=== PATIENT | female | born 1945 | race Caucasian/White ===

== ENCOUNTER 2024-12-20 07:07 | Inpatient (IN) ==
[2024-12-20] MEDS ORDERED: fentaNYL 100 MCG/2 ML VIAL ONE (07:16)
[2024-12-20] MEDS ORDERED: SUGAMMADEX SODIUM 200 MG/2 ML VIAL IV ONE ×2 (07:17→10:35)
[2024-12-20] MEDS ORDERED: KETAMINE 50 MG/ML ML ONE ×2 (07:17→11:29)
[2024-12-20] MEDS ORDERED: PROPOFOL 200 MG/20 ML VIAL IV ONE (07:17)
[2024-12-20] MEDS ORDERED: ROCURONIUM 10 MG/ML ML IV ONE ×2 (07:19→13:32)
[2024-12-20] MEDS ORDERED: GLYCOPYRROLATE 0.2 MG/ML VIAL IV ONE (07:19)
[2024-12-20] MEDS ORDERED: ONDANSETRON 4 MG/2 ML VIAL ONE (07:19)
[2024-12-20] MEDS ORDERED: DEXAMETHASONE 10 MG/ML VIAL ONE (07:19)
[2024-12-20] MEDS ORDERED: ROPIVACAINE HCL/PF 30 ML VIAL IJ ONE (07:24)
[2024-12-20] MEDS: VANCOMYCIN 1,500 MG in 0.9 % SODIUM CHLORIDE 500 ML IV SCH ×2 (08:05→20:30)
[2024-12-20] MEDS: CEFEPIME 2 GM VIAL IV SCH (08:08)
[2024-12-20] MEDS: VANCOMYCIN 1 GM VIAL TOPICAL SCH (09:00)
[2024-12-20] MEDS: GENTAMICIN SULFATE 800 MG/20 ML VIAL IR ONE (09:00)
[2024-12-20] MEDS ORDERED: HYDROmorphone 0.5 MG/0.5 ML SYRINGE ONE (09:05)
[2024-12-20] MEDS ORDERED: ALBUTEROL SULFATE 60 PUFF INHALER ONE (09:43)
[2024-12-20] MEDS ORDERED: VANCOMYCIN PER PHARMACY IV SCH (10:37)
[2024-12-20] MEDS ORDERED: IPRATROPIUM/ALBUTEROL 3 ML AMPUL.NEB NEB PRN (11:15)
[2024-12-20] MEDS ORDERED: ONDANSETRON 4 MG/2 ML VIAL IV PRN (11:15)
[2024-12-20] MEDS: HYDROmorphone 0.5 MG/0.5 ML SYRINGE IV PRN (11:21)
[2024-12-20] MEDS: METHOCARBAMOL 1,000 MG/10 ML VIAL IV ONE (11:21)
[2024-12-20] MEDS ORDERED: MAGNESIUM SULFATE 2 GM/50 ML BAG IV ONE (11:28)
[2024-12-20] MEDS ORDERED: LIDOCAINE 2% PF 5 ML VIAL ONE (11:29)
[2024-12-20] MEDS ORDERED: METOPROLOL TARTRATE 5 MG/5 ML VIAL IV ONE (11:30)
[2024-12-20] MEDS: fentaNYL 100 MCG/2 ML VIAL IV PRN (11:35)
[2024-12-20] MEDS ORDERED: PHENYLEPHRINE 10 MG/ML VIAL ONE (12:08)
[2024-12-20] MEDS ORDERED: 0.9 % SODIUM CHLORIDE 100 ML IV ONE (12:08)
[2024-12-20] MEDS: 0.9 % SODIUM CHLORIDE 1,000 ML IV SCH (12:41)
[2024-12-20] MEDS: HYDROmorphone 0.5 MG/0.5 ML SYRINGE IV ONE (12:49)
[2024-12-20] MEDS: LACTATED RINGERS 1,000 ML IV SCH (12:50)
[2024-12-20] MEDS: ACETAMINOPHEN 1,000 MG/100 ML BAG IV ONE (12:58)
[2024-12-20] MEDS: 0.9 % SODIUM CHLORIDE 10 ML SYRINGE IV SCH (12:59)
[2024-12-20] MEDS: HYDROmorphone 1 MG/ML SYRINGE IV PRN (13:14)
[2024-12-20] MEDS ORDERED: ePHEDrine 50 MG/5 ML SYRINGE (ANEST) IV ONE (13:32)
[2024-12-20] MEDS: CEFEPIME 1 GM VIAL IV SCH (20:30)
[2024-12-20] MEDS: SENNOSIDES 1 TABLET PO SCH (20:31)
[2024-12-20] MEDS: oxyCODONE IR 5 MG TABLET PO PRN (20:32)
[2024-12-20] MEDS: DOCUSATE SODIUM 100 MG CAPSULE PO SCH (20:33)
[2024-12-21 07:33] LABS: Basophils # (Auto) 0.06 K/mcL (0.00-0.30); Basophils % (Auto) 0.3 % (0.0-2.0); Eosinophils # (Auto) 0.16 K/mcL (0.00-0.70); Eosinophils % (Auto) 0.8 % (0.0-7.0); Hematocrit 41.5 % (34.1-44.9); Hemoglobin 13.1 g/dL (11.2-15.7); Lymphocytes # (Auto) 1.92 K/mcL (1.50-4.80); Lymphocytes % (Auto) 9.5 % (15.5-49.0); Mean Cell Volume 94.1 fL (80.0-100.0); Mean Corpuscular HGB Conc 31.6 g/dL (31.0-36.0); Mean Platelet Volume 9.7 fL (8.8-12.5); Monocytes # (Auto) 2.09 K/mcL (0.10-0.90); Monocytes % (Auto) 10.4 % (1.0-12.0); Neutrophils % (Auto) 78.9 % (38.0-78.0); Platelet Count 309 K/mcL (140-440); RBC 4.41 M/mcL (3.59-5.38); Red Cell Distribution Width 14.5 % (11.5-14.5); WBC 20.2 K/mcL (4.5-11.0)
[2024-12-21 07:53] LABS: ALT/SGPT 26 U/L (<40); AST/SGOT 39 U/L (<32); Albumin 3.4 gm/dL (3.2-5.2); Albumin/Globulin Ratio 1.1 (1.0-2.3); Alkaline Phosphatase 88 U/L (39-117); Bilirubin,Direct < 0.2 mg/dL (0-0.3); Bilirubin,Total 0.5 mg/dL (0.1-1.0); Blood Urea Nitrogen 20 mg/dL (8-23); Calcium 9.2 mg/dL (8.6-10.4); Carbon Dioxide 22 mmol/L (22-30); Chloride 103 mmol/L (96-108); Globulin 3.1 gm/dL (2.2-3.7); Glomerular Filtration Rate 61; Glucose 113 mg/dL (70-105); Lactate Dehydrogenase 207 U/L (135-225); Phosphorous 3.3 mg/dL (2.5-4.5); Sodium 137 mmol/L (133-145); Triglycerides 74 mg/dL (<150); Uric Acid 7.7 mg/dL (2.5-8.0)
[2024-12-21] MEDS: PANTOPRAZOLE 40 MG TABLET PO SCH (08:26)
[2024-12-21] MEDS: ONDANSETRON 4 MG/2 ML VIAL IV PRN (08:43)
[2024-12-21] MEDS ORDERED: fentaNYL 100 MCG/2 ML VIAL IV PRN (16:43)
[2024-12-21] MEDS: KETOROLAC 30 MG/ML VIAL IV ONE (17:22)
[2024-12-21] MEDS: ACETAMINOPHEN 1,000 MG/100 ML BAG IV ONE (17:22)
[2024-12-22] MEDS ORDERED: ACETAMINOPHEN 1,000 MG/100 ML BAG IV PRN
[2024-12-22] MEDS ORDERED: ACETAMINOPHEN 1,000 MG/100 ML BAG IV SCH ×2 (00:17→00:20)
[2024-12-22] MEDS: ACETAMINOPHEN 1,000 MG/100 ML BAG IV SCH (00:25)
[2024-12-22] MEDS: ACETAMINOPHEN 1,000 MG/100 ML BAG IV ONE ×2 (00:46→05:37)
[2024-12-22] MEDS: IPRATROPIUM/ALBUTEROL 3 ML AMPUL.NEB NEB SCH (09:33)
[2024-12-22] MEDS: KETOROLAC 30 MG/ML VIAL IV ONE (10:45)
[2024-12-22] MEDS: FUROSEMIDE 20 MG/2 ML VIAL IV ONE (10:45)
[2024-12-22] MEDS: METOCLOPRAMIDE 10 MG/2 ML VIAL IV SCH (23:11)
[2024-12-23 06:47] LABS: Basophils # (Auto) 0.03 K/mcL (0.00-0.30); Basophils % (Auto) 0.2 % (0.0-2.0); Eosinophils # (Auto) 0.27 K/mcL (0.00-0.70); Eosinophils % (Auto) 1.7 % (0.0-7.0); Hematocrit 44.4 % (34.1-44.9); Hemoglobin 13.8 g/dL (11.2-15.7); Lymphocytes # (Auto) 1.15 K/mcL (1.50-4.80); Lymphocytes % (Auto) 7.4 % (15.5-49.0); Mean Cell Volume 95.7 fL (80.0-100.0); Mean Corpuscular HGB Conc 31.1 g/dL (31.0-36.0); Mean Platelet Volume 9.4 fL (8.8-12.5); Monocytes # (Auto) 1.38 K/mcL (0.10-0.90); Monocytes % (Auto) 8.8 % (1.0-12.0); Neutrophils % (Auto) 81.6 % (38.0-78.0); Platelet Count 264 K/mcL (140-440); RBC 4.64 M/mcL (3.59-5.38); Red Cell Distribution Width 14.5 % (11.5-14.5); WBC 15.6 K/mcL (4.5-11.0)
[2024-12-23 07:09] LABS: ALT/SGPT 21 U/L (<40); AST/SGOT 27 U/L (<32); Albumin 3.4 gm/dL (3.2-5.2); Alkaline Phosphatase 88 U/L (39-117); Bilirubin,Direct 0.4 mg/dL (<0.3); Bilirubin,Total 0.6 mg/dL (0.1-1.0); Blood Urea Nitrogen 15 mg/dL (8-23); Calcium 9.8 mg/dL (8.6-10.4); Carbon Dioxide 24 mmol/L (22-30); Chloride 102 mmol/L (96-108); Globulin 3.5 gm/dL (2.2-3.7); Glomerular Filtration Rate 83; Glucose 138 mg/dL (70-105); Lactate Dehydrogenase 159 U/L (135-225); Phosphorous 2.1 mg/dL (2.5-4.5); Potassium 4.5 mmol/L (3.3-5.1); Sodium 136 mmol/L (133-145); Triglycerides 65 mg/dL (<150); Uric Acid 7.5 mg/dL (2.5-8.0)
[2024-12-23 07:13] LABS: Vancomycin,Random 13.1 ug/mL
[2024-12-23] MEDS: VANCOMYCIN 1,500 MG in 0.9 % SODIUM CHLORIDE 500 ML IV ONE (10:04)
[2024-12-23] MEDS ORDERED: ONDANSETRON 4 MG/2 ML VIAL IV PRN ×3 (17:56→23:00)
[2024-12-23] MEDS: ONDANSETRON 4 MG/2 ML VIAL IV ONE (18:05)
[2024-12-23] MEDS: 0.9 % SODIUM CHLORIDE 1,000 ML IV SCH (23:53)
[2024-12-24] MEDS: fentaNYL 100 MCG/2 ML VIAL IV PRN (00:12)
[2024-12-24] MEDS: LIDOCAINE 2% URO-JET 10 ML JEL.PF.APP UR ONE (00:39)
[2024-12-24] MEDS: LIDOCAINE 5% OINT TUBE 35GM TOPICAL ONE (00:40)
[2024-12-24] MEDS: BENZOCAINE ONE 20% 1 SPRAY TOPICAL (00:40)
[2024-12-24] MEDS: PANTOPRAZOLE 40 MG VIAL IV SCH (07:57)
[2024-12-24] MEDS: BENZOCAINE/MENTHOL 1 LOZENGE PO PRN (07:58)
[2024-12-24 08:34] LABS: Basophils # (Auto) 0.05 K/mcL (0.00-0.30); Basophils % (Auto) 0.4 % (0.0-2.0); Eosinophils # (Auto) 0.34 K/mcL (0.00-0.70); Eosinophils % (Auto) 2.4 % (0.0-7.0); Hematocrit 44.3 % (34.1-44.9); Lymphocytes # (Auto) 1.32 K/mcL (1.50-4.80); Lymphocytes % (Auto) 9.3 % (15.5-49.0); Mean Cell Volume 94.3 fL (80.0-100.0); Mean Corpuscular HGB Conc 31.6 g/dL (31.0-36.0); Mean Platelet Volume 9.9 fL (8.8-12.5); Monocytes # (Auto) 1.47 K/mcL (0.10-0.90); Monocytes % (Auto) 10.4 % (1.0-12.0); Neutrophils % (Auto) 77.2 % (38.0-78.0); Platelet Count 296 K/mcL (140-440); Red Cell Distribution Width 14.4 % (11.5-14.5); WBC 14.1 K/mcL (4.5-11.0)
[2024-12-24 08:59] LABS: Vancomycin,Random 11.9 ug/mL
[2024-12-24] MEDS: VANCOMYCIN 1,500 MG in 0.9 % SODIUM CHLORIDE 500 ML IV SCH (11:43)
[2024-12-24] MEDS: METHYLNALTREXONE BROMIDE 12 MG/0.6 ML SYRINGE SQ SCH (14:11)
[2024-12-24] MEDS: PYRIDOSTIGMINE BROMIDE 10 MG/2 ML AMPUL IV SCH (18:12)
[2024-12-25 08:09] LABS: Basophils # (Auto) 0.05 K/mcL (0.00-0.30); Basophils % (Auto) 0.4 % (0.0-2.0); Eosinophils # (Auto) 0.31 K/mcL (0.00-0.70); Eosinophils % (Auto) 2.5 % (0.0-7.0); Hematocrit 42.4 % (34.1-44.9); Hemoglobin 13.3 g/dL (11.2-15.7); Lymphocytes # (Auto) 1.02 K/mcL (1.50-4.80); Lymphocytes % (Auto) 8.1 % (15.5-49.0); Mean Cell Volume 94.4 fL (80.0-100.0); Mean Corpuscular HGB Conc 31.4 g/dL (31.0-36.0); Mean Platelet Volume 8.9 fL (8.8-12.5); Monocytes # (Auto) 1.32 K/mcL (0.10-0.90); Monocytes % (Auto) 10.5 % (1.0-12.0); Neutrophils % (Auto) 78.3 % (38.0-78.0); Platelet Count 276 K/mcL (140-440); RBC 4.49 M/mcL (3.59-5.38); Red Cell Distribution Width 14.6 % (11.5-14.5); WBC 12.6 K/mcL (4.5-11.0)
[2024-12-26 06:36] LABS: Basophils # (Auto) 0.06 K/mcL (0.00-0.30); Basophils % (Auto) 0.5 % (0.0-2.0); Eosinophils # (Auto) 0.42 K/mcL (0.00-0.70); Eosinophils % (Auto) 3.3 % (0.0-7.0); Hematocrit 40.5 % (34.1-44.9); Hemoglobin 12.8 g/dL (11.2-15.7); Lymphocytes # (Auto) 1.69 K/mcL (1.50-4.80); Lymphocytes % (Auto) 13.5 % (15.5-49.0); Mean Cell Volume 95.1 fL (80.0-100.0); Mean Corpuscular HGB Conc 31.6 g/dL (31.0-36.0); Mean Platelet Volume 9.6 fL (8.8-12.5); Monocytes # (Auto) 1.35 K/mcL (0.10-0.90); Monocytes % (Auto) 10.7 % (1.0-12.0); Neutrophils % (Auto) 71.5 % (38.0-78.0); Platelet Count 275 K/mcL (140-440); RBC 4.26 M/mcL (3.59-5.38); Red Cell Distribution Width 14.6 % (11.5-14.5); WBC 12.6 K/mcL (4.5-11.0)
[2024-12-26 07:23] LABS: ALT/SGPT 33 U/L (<40); AST/SGOT 26 U/L (<32); Alkaline Phosphatase 98 U/L (39-117); Bilirubin,Direct 0.2 mg/dL (<0.3); Bilirubin,Total 0.4 mg/dL (0.1-1.0); Blood Urea Nitrogen 12 mg/dL (8-23); Calcium 9.1 mg/dL (8.6-10.4); Carbon Dioxide 22 mmol/L (22-30); Chloride 107 mmol/L (96-108); Globulin 2.9 gm/dL (2.2-3.7); Glomerular Filtration Rate 83; Glucose 96 mg/dL (70-105); Lactate Dehydrogenase 158 U/L (135-225); Phosphorous 2.6 mg/dL (2.5-4.5); Potassium 3.6 mmol/L (3.3-5.1); Sodium 142 mmol/L (133-145); Triglycerides 99 mg/dL (<150); Uric Acid 6.7 mg/dL (2.5-8.0)
[2024-12-27 12:02] VITALS: TEMP 97.5; O2SAT 93
== END 2024-12-27 15:11 | disposition home health service (06) | DRG 354 ==
LOC: MEDSUR 07:07
PROVIDERS: ADMIT Family Medicine Adult Medicine; ATTEND Family Medicine Adult Medicine